=== PATIENT | male | born 1990 | race Caucasian/White ===

== ENCOUNTER 2016-09-14 21:24 | Emergency (ER) | payer SELFPAY ==
--- NOTE | 2016-09-14 21:44 | Emergency Department Record ---
History of Present Illness - General Chief complaint: Cough Stated complaint: POSS PINK EYE Time Seen by Provider: 09/14/16 21:36 Source: Patient Mode of Arrival: Ambulatory Limitations: No limitations - History of Present Illness Initial comments: 26 yo male presents with one week of cough with productive sputum that is greenish. No shortness of breath. No blood. He is a smoker. Today he developed right eye redness and swelling with a small amount of crusting. No vision changes. No history of eye disease or contact use. MD complaint: Other (Cough and right eye irritation) Onset/Timin -: Days(s) Severity scale (1-10): 6 Quality: Burning Consistency: Constant Improves with: None Worsens with: None Context- Ear: Recent illness Associated Symptoms: Cough, Pain with swallowing, Rhinorrhea, Sore throat - Related Data Previous Rx's Medication Instructions Recorded Azithromycin [Zithromax] 250 mg PO DAILY #4 tab 09/14/16 Allergies Allergy/AdvReac Type Severity Reaction Status Date / Time No Known Drug Allergies Allergy Verified 09/14/16 21:36 Travel Screening - Travel/Exposure Within Last 30 Days Have you traveled within the last 30 days?: Yes Location Detail:: moved from [place] 2 months ago - Travel/Exposure Within Last Year Have you traveled outside the [place] in the last year?: No - Travel Symptoms Symptom Screening: None Review of Systems Constitutional: Denies: Chills, Fever, Malaise, Weakness Eyes: Reports: Eye discharge, Eye pain. Denies: Photophobia, Vision change ENT: Reports: Congestion. Denies: Ear pain, Throat pain Respiratory: Reports: Cough Cardiovascular: Denies: Chest pain, Dyspnea on exertion, Palpitations, Syncope Endocrine: Denies: Fatigue Gastrointestinal: Denies: Abdominal pain, Diarrhea, Nausea, Vomiting Genitourinary: Denies: Dysuria, Frequency, Hematuria Musculoskeletal: Denies: Arthralgia, Back pain, Myalgia Skin: Denies: Bruising, Change in color, Rash Neurological: Denies: Confusion, Headache, Weakness Psychiatric: Denies: Anxiety Hematological/Lymphatic: Denies: Blood Clots, Easy bleeding, Easy bruising Past Medical History - SOCIAL HISTORY Smoking Status: Light tobacco smoker (<10/day) Alcohol Use: Rare Drug Use: None - RESPIRATORY Hx Respiratory Disorders: No - CARDIOVASCULAR Hx Cardio Disorders: No - NEURO Hx Neuro Disorders: No - GI Hx GI Disorders: No - Hx Genitourinary Disorders: No - ENDOCRINE Hx Endocrine Disorders: No - MUSCULOSKELETAL Hx Musculoskeletal Disorders: No - PSYCH Hx Psych Problems: No - HEMATOLOGY/ONCOLOGY Hx Hematology/Oncology Disorders: No Family Medical History Any Significant Family History?: No Hx Diabetes: Father, Grandparents Hx Heart Disease: Father, Mother, Grandparents Physical Exam - General General Appearance: Alert, Oriented x3, Cooperative, No acute distress Limitations: No limitations - Head Head exam: Atraumatic, Normal inspection - Eye Eye exam: PERRL, Conjunctival injection, EOMI, Other (scant amount of crusting medial). negative: Normal appearance, Nystagmus, Periorbital swelling, Periorbital tenderness, Scleral icterus Pupils: Normal accommodation. negative: Irregular, Unequal Visual acuity (L) = 20/: 20 Visual acuity (R) = 20/: 20 With correction: No - ENT ENT exam: Normal exam Ear exam: Normal external inspection Nasal Exam: Normal inspection Mouth exam: Normal external inspection Teeth exam: Normal inspection Throat exam: Normal inspection - Neck Neck exam: Normal inspection, Full ROM. negative: Lymphadenopathy, Tenderness - Respiratory Respiratory exam: Normal lung sounds bilaterally. negative: Accessory muscle use, Decreased breath sounds, Prolonged expiratory, Respiratory distress, Rhonchi, Stridor, Wheezes - Cardiovascular Cardiovascular Exam: Regular rate, Normal rhythm, Normal heart sounds - Rectal Rectal exam: Deferred - exam: Deferred - Extremities Extremities exam: Normal inspection, Full ROM, Normal capillary refill. negative: Pedal edema, Tenderness - Back Back exam: Reports: Normal inspection, Full ROM. Denies: Muscle spasm, Rash noted, Tenderness - Neurological Neurological exam: Alert, Normal gait, Oriented X3 - Psychiatric Psychiatric exam: Normal affect, Normal mood. negative: Agitated, Anxious - Skin Skin exam: Dry, Intact, Normal color, Warm Course Vital Signs 09/14/16 21:29 Temperature 99.4 F Pulse Rate 98 H Respiratory 20 Rate Blood Pressure 136/77 Pulse Ox 95 - Reevaluation(s) Reevaluation #1: EYE Exam Stained. No uptake or surface abnormalities No abrasions Antibiotics provided in the ED 09/14/16 21:49 Disposition Disposition: Discharge Clinical Impression: Bronchitis Conjunctivitis Qualifiers: Conjunctivitis type: acute Acute conjunctivitis type: unspecified Laterality: right Qualified Code(s): H10.31 - Unspecified acute conjunctivitis, right eye Condition: (1) Good Instructions: Conjunctivitis (ED), Acute Bronchitis (ED) Additional Instructions: Return in the next 1-2 days if worse, fever, vision loss or changes Apply the antibiotics every 4 hours and one day after the symptoms resolved Prescriptions: Azithromycin [Zithromax] 250 mg PO DAILY #4 tab Forms: Patient Portal Access Time of Disposition: 21:52
[2016-09-14] MEDS ORDERED: AZITHROMYCIN 500 MG TABLET PO ONE (21:47)
[2016-09-14] MEDS ORDERED: PROPARACAINE HCL OPTH 15ML BTL OPTH ONE (21:50)
[2016-09-14] MEDS ORDERED: POLYMYXIN B SULF/TRIMETHOPRIM 10ML BTL OPTH SCH (22:00)
== END 2016-09-14 21:59 | disposition home or self-care (01) ==
LOC: ER 21:24
DX: J20.9 Acute bronchitis, unspecified (principal); H10.31 Unspecified acute conjunctivitis, right eye; F17.210 Nicotine dependence, cigarettes, uncomplicated
CPT/HCPCS: 99283 ×2; J3490